=== PATIENT | female | born 1960 | race Caucasian/White ===

== ENCOUNTER 2020-07-21 11:10 | Inpatient (IN) | payer MEDICAID, OTHER ==
[~2020-07-21] VITALS: Ht 147.3 cm; Wt 62.6 kg
[2020-07-21 11:54] LABS: BASOPHILS % 0.4 % (0.0-2.0); EOSINOPHILS % 1.1 % (0.0-5.0); HEMOGLOBIN. 12.9 g/dL (12.0-16.0); LYMPHOCYTES % 33.8 % (20.0-50.0); MEAN CORPUSCULAR HEMOGLOBIN 31.8 pg (28.0-32.0); MEAN CORPUSCULAR VOLUME 91.2 fL (81.0-99.0); MEAN PLATELET VOLUME 9.1 fl (7.4-10.4); NEUTROPHILS % 55.7 % (40.0-76.0); PLATELET 198 x1000/uL (130-400); RED BLOOD CELL COUNT 4.05 mill/uL (4.2-5.4); RED CELL DISTRIBUTION WIDTH 13.9 % (11.6-14.6)
[2020-07-21 12:02] LABS: CHLORIDE 108 mEq/L (98-107)
[2020-07-21] MEDS ORDERED: MORPHINE SULFATE 4 MG/ML CPJ (NOT FOR IM USE) IV STA (12:03)
[2020-07-21] MEDS ORDERED: ONDANSETRON HCL 4MG/2ML INJ IV STA (12:03)
[2020-07-21] MEDS ORDERED: ASPIRIN 81MG TABLET PO ONE (12:15)
[2020-07-21] MEDS ORDERED: NITROGLYCERIN OINT 1GM/INCH UDPKT TD ONE (12:15)
[2020-07-21] MEDS ORDERED: NITROGLYCERIN 0.4MG TABLET SL SL PRN (12:15)
[2020-07-21] MEDS ORDERED: POTASSIUM CHLORIDE 20MEQ TABLET SR PO ONE (13:00)
[2020-07-21] MEDS ORDERED: MAGNESIUM/ALUMINUM HYDROXIDE/SIMETHICONE 30ML UDC PO PRN (15:45)
[2020-07-21] MEDS ORDERED: ACETAMINOPHEN 325MG TABLET PO PRN (15:45)
[2020-07-21] MEDS ORDERED: ONDANSETRON HCL 4MG/2ML INJ IV PRN (15:45)
[2020-07-21] MEDS ORDERED: LORAZEPAM 2MG/ML CPJ IV PRN (15:45)
[2020-07-21] MEDS ORDERED: MORPHINE SULFATE 2 MG/ML CPJ (NOT FOR IM USE) IV PRN (15:45)
[2020-07-21] MEDS ORDERED: HYDROCODONE/ACETAMINOPHEN 5/325MG TABLET PO PRN (15:45)
[2020-07-21] MEDS ORDERED: IPRATROPIUM/ALBUTEROL 0.5-3(2.5)MG/3ML NEB NEB PRN (15:45)
[2020-07-21 16:00] VITALS: BP 116/74
[2020-07-21 16:35] VITALS: BP 111/63
[2020-07-21] MEDS ORDERED: LISI20TA31 PO (17:32)
[2020-07-21] MEDS: POTASSIUM CHLORIDE 20MEQ TABLET SR PO SCH (17:34)
[2020-07-21] MEDS: THIAMINE HCL 100MG TABLET PO SCH (17:34)
[2020-07-21] MEDS ORDERED: ENOXAPARIN 40MG/0.4ML SYR SUBCUT SCH (17:45)
[2020-07-21 20:00] VITALS: BP 120/63
[2020-07-22] VITALS: BP 118/70
[2020-07-22 01:01] LABS: CREATINE KINASE 72 IU/L (26-192)
[2020-07-22 01:02] LABS: CREATINE KINASE MB FRACTION < 1.0 ng/mL (0.5-3.6)
[2020-07-22 04:00] VITALS: BP 100/53
[2020-07-22 08:29] LABS: BASOPHILS % 0.3 % (0.0-2.0); EOSINOPHILS % 1.3 % (0.0-5.0); HEMATOCRIT. 33.3 % (36.0-48.0); HEMOGLOBIN. 11.5 g/dL (12.0-16.0); LYMPHOCYTES % 22.8 % (20.0-50.0); MEAN CORPUSCULAR HEMOGLOBIN 32.1 pg (28.0-32.0); MEAN CORPUSCULAR VOLUME 92.9 fL (81.0-99.0); MEAN PLATELET VOLUME 9.9 fl (7.4-10.4); MONOCYTES % 8.1 % (2.0-8.0); NEUTROPHILS % 67.5 % (40.0-76.0); PLATELET 162 x1000/uL (130-400); RED BLOOD CELL COUNT 3.58 mill/uL (4.2-5.4); RED CELL DISTRIBUTION WIDTH 13.5 % (11.6-14.6)
[2020-07-22 08:44] LABS: CHLORIDE 112 mEq/L (98-107)
[2020-07-22 08:50] VITALS: BP 137/69
[2020-07-22 08:51] LABS: PHOSPHORUS 3.1 mg/dL (2.5-4.9)
[2020-07-22 08:54] LABS: CREATINE KINASE 65 IU/L (26-192)
[2020-07-22 08:57] LABS: CREATINE KINASE MB FRACTION < 1.0 ng/mL (0.5-3.6)
[2020-07-22] MEDS ORDERED: ASPIRIN 81MG EC TABLET PO SCH (09:00)
[2020-07-22 11:55] VITALS: BP 131/65
[2020-07-22] MEDS: THIAMINE HCL 100MG TABLET PO SCH (12:25)
[2020-07-22] MEDS: POTASSIUM CHLORIDE 20MEQ TABLET SR PO SCH (12:25)
[2020-07-22 12:29] VITALS: BP 131/65
== END 2020-07-22 13:15 | disposition home or self-care (01) | DRG 203 ==
LOC: ER 11:10 → 8WST 13:28 → EDBEDREQ 13:37 → ENRESERV 15:06
PROVIDERS: ADMIT Internal Medicine Nephrology; ATTEND Internal Medicine Nephrology
DX: M94.0 Chondrocostal junction syndrome [Tietze] (principal); E87.8 Other disorders of electrolyte and fluid balance, not elsewhere classified; E87.6 Hypokalemia; I10 Essential (primary) hypertension; Z82.49 Family history of ischemic heart disease and other diseases of the circulatory system; Z83.3 Family history of diabetes mellitus; Z90.49 Acquired absence of other specified parts of digestive tract; Z98.891 History of uterine scar from previous surgery
CPT/HCPCS: 36415; 71045; 80048; 80053; 82550; 82553; 83735; 83880; 84100; 84484; 85025; 93005; 93306; 99291; J1650; J2270; J2405